=== PATIENT | female | born 1970 | race Caucasian/White ===

== ENCOUNTER 2021-10-29 11:11 | Outpatient (CLI) | payer BC, SELFPAY ==
--- NOTE | ~2021-10-29 | XR_ITS ---
EXAMINATION: XR sacrum coccyx min 2V DATE: 10/29/2021 11:40 INDICATION: Pinning and adjustment of neuro pacemaker TECHNIQUE: AP, angled AP and lateral views of the sacrum and coccyx were obtained. COMPARISON: 07/03/2015 FINDINGS: Sacral nerve root stimulator in the soft tissues at the left buttock with lead extending across the m idline and across the right S4 neural foramen. Again seen is a T-shaped IUD projects over the central pelvis but more anterior and cephalad than typical expected position. IMPRESSION: 1. Sacral nerve root stimulator extending to the right S4 neural foramen. 2. IUD projects over the central pelvis but more cephalad and anterior than typical expected position . Reviewed, dictated and finalized at location H. CLERK IMPRESSION: 1. Sacral nerve root stimulator extending to the right S4 neural foramen. 2. IUD projects over the central pelvis but more cephalad and anterior than typ ical expected position.
== END 2021-10-29 11:12 | disposition home or self-care (01) ==
LOC: ANHIMG 11:20
PROVIDERS: Visit Provider Nurse Practitioner Adult Health
DX: Z46.2 Encounter for fitting and adjustment of other devices related to nervous system and special senses (principal); Z97.5 Presence of (intrauterine) contraceptive device
CPT/HCPCS: 72220